=== PATIENT | male | born 1950 | race African-American/Black ===

== ENCOUNTER 2019-11-14 04:18 | Day surgery (SDC) | payer OTHER ==
[2019-11-12 18:49] VITALS: BMI 27.0
[2019-11-14] MEDS ORDERED: EPHEDRINE SULFATE/0.9% NACL/PF 50 MG/10 ML SYRINGE NR ONE (07:22)
[2019-11-14] MEDS ORDERED: ceFAZolin SODIUM 1 GM VIAL ONE (07:22)
[2019-11-14] MEDS ORDERED: LIDOCAINE HCL/PF 2% SDV 5ML VIAL ONE (07:22)
[2019-11-14] MEDS ORDERED: MIDAZOLAM HCL 2 MG/2 ML SINGLE DOSE VIAL ONE (07:23)
[2019-11-14] MEDS ORDERED: SUCCINYLCHOLINE CHLORIDE 200 MG/10 ML SYRINGE ONE (07:23)
[2019-11-14] MEDS ORDERED: PROPOFOL 20 ML ONE ×3 (07:23)
[2019-11-14] MEDS ORDERED: SODIUM CHLORIDE 0.9% P/F 10 ML VIAL IJ ONE (07:27)
[2019-11-14] MEDS ORDERED: oxyCODONE HCL 5 MG TABLET PO PRN (07:50)
[2019-11-14] MEDS ORDERED: ONDANSETRON 4 MG/2 ML VIAL IVPUSH PRN (07:50)
--- NOTE | 2019-11-14 07:51 | HP ---
History & Physical Update - History History: No Change - Physical Physical: No Change - Assessment Assessment: No Change - Plan Plan: No Change
--- NOTE | 2019-11-14 07:53 | OP ---
Operative Note - Note: Operative Date: 11/14/19 Pre-Operative Diagnosis: bladder foreign body Operation: cystoscopy and removal of bladder fb Findings: bladder fb Post-Operative Diagnosis: Same as Pre-op Surgeon: Cristobal Melendrez Anesthesiologist/EVENT PROMOTER: fAsaneh Obrien Anesthesia: General Specimens Removed: bladder fb Estimated Blood Loss (mls): 0 Operative Report Dictated: Yes
[2019-11-14] MEDS ORDERED: LACTATED RINGERS SOLUTION 1,000 ML IV SCH (08:00)
[2019-11-14] MEDS ORDERED: ceFAZolin SODIUM 1 GM VIAL IVPB ONE (08:06)
--- NOTE | 2019-11-14 09:36 | OP ---
DATE OF OPERATION: 11/14/2019 PREOPERATIVE DIAGNOSIS: Bladder foreign body. POSTOPERATIVE DIAGNOSIS: Bladder foreign body. PROCEDURE: Cystoscopy, removal of bladder foreign body. SURGEON: Cristobal Pratt MD FERRYBOAT OPERATOR HELPER: None. ANESTHESIA: General via laryngeal mask. ANESTHESIOLOGIST: Afsaneh Obrien MD SPECIMENS: Bladder foreign body. CULTURES: None. DRAINS: None. ESTIMATED BLOOD LOSS: None. COMPLICATIONS: None. PROCEDURE: Patient was brought into the operating room, placed on the operating table in the supine position. After administration of general anesthesia via laryngeal mask, intravenous antibiotics were administered. Sequential compression devices were placed. Patient was placed in the dorsal lithotomy position. Genitals and perineum were prepped and draped in usual sterile manner. A 26-[place] resectoscope sheath with visualizing obturator was inserted into the bladder under direct vision. The bladder was entered and thoroughly inspected. There were no tumors, stones or inflammation. There was a foreign body in the right side of the bladder neck at the 10 o'clock position. The prostatic urethra measured approximately 4.5 cm in length, demonstrated moderate bilobar occlusion. The bladder showed moderate 1+ trabeculations. Both ureteral orifices were in their usual location with clear efflux bilaterally. Now grasping forceps was inserted and the foreign body was grasped and removed, sent to Pathology as specimen. There was additional suture from the UroLift at this same position which was resected using the loop and removed, sent to Pathology as specimen. Hemostasis assured. The bladder was emptied. Cystoscope removed. He tolerated the procedure well, was transferred to recovery in stable condition. CRISTOBAL PRATT M.D. [id number]
[2019-11-14 12:26] VITALS: BP 135/75; PULSE 66; TEMP 97.7
--- NOTE | 2019-11-15 09:54 | EKG ---
Test Reason : Blood Pressure : / mmHG Vent. Rate : 066 BPM Atrial Rate : 066 BPM P-R Int : 176 ms QRS Dur : 086 ms QT Int : 382 ms P-R-T Axes : 067 044 072 degrees QTc Int : 400 ms NORMAL SINUS RHYTHM POSSIBLE LEFT ATRIAL ENLARGEMENT BORDERLINE ECG NO PREVIOUS ECGS AVAILABLE Confirmed by RADHA JIANG, GABRIELA ([id number]) on 11/15/2019 9:53:47 AM Referred By: TERENCE Confirmed By:GABRIELA GARCIA MD
--- NOTE | 2019-11-16 19:25 | PATH ---
Surgical Pathology Report Patient Name: MARICRUZ THOMASON Med. Rec. #: [id number] /Age/Gender: 1950 (Age: 69) / M Account: [id number] Location: [facility] Taken: 11/14/2019 Received: 11/14/2019 Reported: 11/16/2019 Physicians: Cristobal Melendrez M.D. Specimen(s) Received FOREIGN BODY BLADDER Clinical History Foreign body bladder Final Diagnosis FOREIGN BODY BLADDER, EXCISION: UROTHELIAL MUCOSA WITH FOCAL CHRONIC INFLAMMATION. SUBJACENT UNREMARKABLE MUSCULARIS PROPRIA PRESENT. FOREIGN BODY IDENTIFIED. GROSS ONLY. Electronically Signed Jarrell Cronin M.D. Gross Description Received in formalin labeled "foreign body bladder," is a 1.0 cm in greatest dimension villatoro metallic foreign body. Also received within the same container is a 0.6 cm in greatest dimension miranda portion of soft tissue. The soft tissue is submitted in toto in one cassette. /11/14/2019 saudi/11/14/2019
== END 2019-11-14 10:30 | disposition home or self-care (01) ==
LOC: JASU-SURG 04:18
PROVIDERS: ATTEND Urology
PROC: 0TCB8ZZ Extirpation of Matter from Bladder, Via Natural or Artificial Opening Endoscopic (ICD-10-PCS; principal; 2019-11-14 08:00)
DX: T19.1XXA Foreign body in bladder, initial encounter (principal); E11.9 Type 2 diabetes mellitus without complications
CPT/HCPCS: 82962; 88305-TC; 93005; 93010; 94760

== ENCOUNTER 2020-11-14 04:18 | Day surgery (SDC) | payer OTHER ==
[2020-11-13 11:12] VITALS: BMI 27.3
[2020-11-14] MEDS ORDERED: LIDOCAINE HCL 1%, 10 MG/ML (20ML VIAL) ONE (10:22)
[2020-11-14] MEDS ORDERED: BUPIVACAINE HCL/PF 0.25% (2.5MG/ML) 10 ML VIAL ONE (10:22)
[2020-11-14] MEDS ORDERED: BUPIVACAINE HCL/PF 0.5% (5MG/ML) 10 ML VIAL ONE (10:22)
[2020-11-14] MEDS ORDERED: GENTAMICIN SO4 80 MG/2 ML VIAL ONE ×4 (10:23→11:49)
[2020-11-14] MEDS ORDERED: MIDAZOLAM HCL 2 MG/2 ML SINGLE DOSE VIAL ONE ×2 (11:02)
[2020-11-14] MEDS ORDERED: PROPOFOL 20 ML ONE (11:02)
[2020-11-14] MEDS ORDERED: VANCOMYCIN 1,000 MG VIAL (RESTRICTED TO ID ONLY) ONE (11:39)
[2020-11-14] MEDS ORDERED: VANCOMYCIN 1,000 MG VIAL (RESTRICTED TO ID ONLY) IVPB ONE (11:50)
[2020-11-14] MEDS ORDERED: GENTAMICIN SO4 80 MG/2 ML VIAL IVPB ONE (12:00)
[2020-11-14] MEDS ORDERED: HYDROmorphone HCl 2 MG/ML VIAL ONE (13:26)
[2020-11-14] MEDS ORDERED: oxyCODONE HCL 5 MG TABLET PO PRN (14:34)
[2020-11-14] MEDS ORDERED: ONDANSETRON 4 MG/2 ML VIAL IVPUSH PRN (14:34)
[2020-11-14] MEDS ORDERED: LACTATED RINGERS SOLUTION 1,000 ML IV SCH (14:45)
[2020-11-14 18:47] VITALS: BP 164/72; PULSE 72; TEMP 97.9
== END 2020-11-14 18:00 | disposition home or self-care (01) ==
LOC: JASUSAT 04:18 → JASU-SURG 04:18 → JASUSAT 18:00
PROVIDERS: ATTEND Urology
PROC: 0VUS0JZ Supplement Penis with Synthetic Substitute, Open Approach (ICD-10-PCS; principal; 2020-11-14 11:00)
DX: N52.8 Other male erectile dysfunction (principal); E11.9 Type 2 diabetes mellitus without complications; I10 Essential (primary) hypertension
CPT/HCPCS: 54401; C1813; 82962; 94760